=== PATIENT | female | born 1955 | race Caucasian/White ===

== ENCOUNTER 2021-07-03 10:26 | Outpatient (CLI) | payer MEDICARE | END 2021-07-03 10:27 | disposition home or self-care (01) | LOC: BICMAMMO 10:26 | DX: Z12.31 Encounter for screening mammogram for malignant neoplasm of breast (principal) | CPT/HCPCS: 77063; 77067 ==

== ENCOUNTER 2023-07-29 09:55 | Outpatient (CLI) | payer MEDICARE | END 2023-07-29 09:56 | disposition home or self-care (01) | LOC: BICMAMMO 09:55 | PROVIDERS: ATTEND Obstetrics & Gynecology | DX: Z12.31 Encounter for screening mammogram for malignant neoplasm of breast (principal) | CPT/HCPCS: 77063; 77067 ==